=== PATIENT | female | born 1995 | race Caucasian/White ===

== ENCOUNTER 2018-08-06 15:15 | Inpatient (IN) | payer OTHER ==
[2018-08-06] MEDS ORDERED: METHYLERGONOVINE 0.2 MG INJ IM (16:00)
[2018-08-06] MEDS ORDERED: CARBOPROST 250 MCG INJ IM (16:00)
[2018-08-06] MEDS ORDERED: OXYTOCIN 30 UNITS/LR 500 ML IV (16:00)
[2018-08-06] MEDS ORDERED: MISOPROSTOL 200 MCG TAB PR (16:00)
[2018-08-06] MEDS: TERBUTALINE 1 MG/ML INJ SC (16:06)
[2018-08-06] MEDS: LACTATED RINGER'S 1,000 ML IV ×3 (16:38→19:31)
[2018-08-06 16:49] LABS: ADD MAN DIFF? NO
[2018-08-06 16:54] LABS: WHITE BLOOD COUNT 9.2 10^3/ul (4.8-10.8)
[2018-08-06 16:54] LABS: BASOPHILS % 0.1 % (0.0-2.0); EOSINOPHILS % 0.1 % (0.0-7.0); HEMATOCRIT 38.7 % (37.0-47.0); HEMOGLOBIN 12.6 g/dl (12.0-16.0); LYMPHOCYTES # 2.2 10^3/ul (0.8-2.9); LYMPHOCYTES % 23.3 % (15.0-51.0); MEAN CORPUSCULAR HEMOGLOBIN 26.2 pg (29.0-33.0); MEAN CORPUSCULAR HGB CONC 32.6 g/dl (32.0-37.0); MEAN CORPUSCULAR VOLUME 80.5 fl (82.0-101.0); MEAN PLATELET VOLUME 11.1 fl (7.4-10.4); MONOCYTE # 0.5 10^3/ul (0.3-0.9); MONOCYTES % 5.7 % (0.0-11.0); NEUTROPHIL # 6.5 10^3/ul (1.6-7.5); NEUTROPHILS % 70.4 % (39.0-77.0); PLATELET COUNT 221 10^3/UL (140-415); RED BLOOD COUNT 4.81 10^6/ul (4.20-5.40); RED CELL DISTRIBUTION WIDTH 16.7 % (11.5-14.5)
[2018-08-06 17:11] LABS: INR 0.89; PROTIME 12.2 Sec (11.9-14.9)
[2018-08-06 17:12] LABS: PARTIAL THROMBOPLASTIN TIME 25.9 Sec (23.0-35.0)
[2018-08-06 17:41] LABS: HEPATITIS B SURFACE ANTIGEN NEGATIVE (NEGATIVE)
[2018-08-06] MEDS: CITRIC ACID/NA CITRATE 30 ML CUP PO (18:53)
[2018-08-06] MEDS: ONDANSETRON 4 MG INJ IV (18:53)
[2018-08-06] MEDS ORDERED: OXYTOCIN 10 UNIT INJ (20:29)
[2018-08-06] MEDS ORDERED: PHENYLephrine (100 MCG/ML) 10ML SYG (20:29)
[2018-08-06] MEDS ORDERED: morphine SULFATE/PF (10 MG/10 ML) INJ (20:29)
[2018-08-06] MEDS ORDERED: METOCLOPRAMIDE 10 MG INJ IV (21:00)
[2018-08-06] MEDS ORDERED: ONDANSETRON 4 MG INJ IV (21:00)
[2018-08-06] MEDS ORDERED: EPHEDrine SULFATE 50 MG/5 ML SYG IV (21:00)
[2018-08-06] MEDS ORDERED: morphine 2 MG INJ IV ×2 (21:00)
[2018-08-06] MEDS ORDERED: MEPERIDINE 25 MG INJ IV (21:00)
[2018-08-06] MEDS ORDERED: DIPHENHYDRAMINE 50 MG INJ IV ×2 (21:00)
[2018-08-06] MEDS ORDERED: NALOXONE (0.4 MG/ML) INJ IV (21:00)
[2018-08-06] MEDS ORDERED: ACETAMINOPHEN 500 MG TAB PO (21:00)
[2018-08-06] MEDS ORDERED: NALBUPHINE HCL (10 MG/1 ML) INJ IV (21:00)
[2018-08-06] MEDS ORDERED: HYDROmorphONE 0.5 MG/0.5 ML SYG IV ×2 (21:00)
[2018-08-06] MEDS ORDERED: HYDROCODONE/APAP (5/325) TAB PO (21:00)
[2018-08-06] MEDS ORDERED: OXYCODONE/ACETAMINOPHEN (5/325) TAB PO (21:00)
[2018-08-06] MEDS ORDERED: ONDANSETRON 4 MG INJ (21:01)
[2018-08-06] MEDS ORDERED: DEXAMETHASONE 4 MG/ML 1 ML INJ (21:01)
[2018-08-06] MEDS ORDERED: METOCLOPRAMIDE 10 MG INJ (21:01)
[2018-08-06] MEDS ORDERED: KETOROLAC 30 MG INJ (21:01)
[2018-08-06] MEDS: OXYTOCIN 30 UNITS/LR 500 ML IV ×2 (21:50→22:42)
[2018-08-06] MEDS: CEFAZOLIN 2 GM/50 ML (PMX) 50 ML IVPB (21:54)
[2018-08-06] MEDS: OXYTOCIN 30 UNITS/LR 500 ML IVPB (22:22)
[2018-08-07] MEDS: DEXTROSE 5%-LR 1,000 ML IV ×2 (00:33→12:45)
[2018-08-07] MEDS ORDERED: METHYLERGONOVINE 0.2 MG INJ IM (01:00)
[2018-08-07] MEDS ORDERED: CARBOPROST 250 MCG INJ IM (01:00)
[2018-08-07] MEDS ORDERED: MISOPROSTOL 200 MCG TAB PR (01:00)
[2018-08-07] MEDS ORDERED: METHYLERGONOVINE 0.2 MG TAB PO (01:00)
[2018-08-07] MEDS ORDERED: OXYTOCIN 30 UNITS/LR 500 ML IV (01:00)
[2018-08-07] MEDS: OXYTOCIN 30 UNITS/LR 500 ML IV ×2 (03:56→22:00)
[2018-08-07 06:47] LABS: ADD MAN DIFF? NO
[2018-08-07 06:50] LABS: BASOPHILS % 0.1 % (0.0-2.0); HEMATOCRIT 32.6 % (37.0-47.0); HEMOGLOBIN 10.6 g/dl (12.0-16.0); LYMPHOCYTES # 1.2 10^3/ul (0.8-2.9); LYMPHOCYTES % 8.1 % (15.0-51.0); MEAN CORPUSCULAR HEMOGLOBIN 26.8 pg (29.0-33.0); MEAN CORPUSCULAR HGB CONC 32.5 g/dl (32.0-37.0); MEAN CORPUSCULAR VOLUME 82.3 fl (82.0-101.0); MONOCYTE # 0.8 10^3/ul (0.3-0.9); MONOCYTES % 5.8 % (0.0-11.0); NEUTROPHIL # 12.4 10^3/ul (1.6-7.5); NEUTROPHILS % 85.4 % (39.0-77.0); PLATELET COUNT 195 10^3/UL (140-415); RED BLOOD COUNT 3.96 10^6/ul (4.20-5.40); RED CELL DISTRIBUTION WIDTH 16.3 % (11.5-14.5)
[2018-08-07 06:50] LABS: WHITE BLOOD COUNT 14.5 10^3/ul (4.8-10.8)
[2018-08-07] MEDS: SENNA/DOCUSATE NA (8.6MG/50MG) TAB PO ×2 (10:02→21:36)
[2018-08-07] MEDS ORDERED: HYDROCODONE/APAP (5/325) TAB NGT (11:00)
[2018-08-07] MEDS: KETOROLAC 30 MG INJ IV ×2 (11:07→17:04)
[2018-08-07 15:01] LABS: RAPID PLASMA REAGIN NONREACTIVE (NR)
[2018-08-07] MEDS: HYDROCODONE/APAP (5/325) TAB GTB (21:36)
[2018-08-07] MEDS: IBUPROFEN 800 MG TAB PO (22:00)
[2018-08-08] MEDS: OXYTOCIN 30 UNITS/LR 500 ML IV ×7 (02:00→22:00)
[2018-08-08] MEDS: IBUPROFEN 800 MG TAB PO ×3 (06:01→22:32)
[2018-08-08] MEDS: HYDROCODONE/APAP (5/325) TAB GTB ×3 (06:01→22:32)
[2018-08-08] MEDS: DIPHTH/TET/ACEL PERTUSS (ADULT) 0.5 ML VIAL IM* (06:02)
[2018-08-08] MEDS: DEXTROSE 5%-LR 1,000 ML IV ×4 (06:03→16:33)
[2018-08-08] MEDS: SENNA/DOCUSATE NA (8.6MG/50MG) TAB PO ×2 (09:00→20:44)
[2018-08-09] MEDS: DEXTROSE 5%-LR 1,000 ML IV ×2 (00:33→08:33)
[2018-08-09] MEDS: OXYTOCIN 30 UNITS/LR 500 ML IV ×3 (02:00→10:00)
[2018-08-09] MEDS: IBUPROFEN 800 MG TAB PO (05:58)
[2018-08-09] MEDS: HYDROCODONE/APAP (5/325) TAB GTB (06:00)
[2018-08-09] MEDS: SENNA/DOCUSATE NA (8.6MG/50MG) TAB PO (09:00)
[2018-08-09] MEDS: DIPHTH/TET/ACEL PERTUSS (ADULT) 0.5 ML VIAL IM* (09:00)
[2018-08-09] MEDS: MEASLES,MUMPS,RUBELLA VACCINE INJ SC* (09:00)
[2018-08-09] MEDS: LANOLIN HPA 1 PKT TOP (09:00)
== END 2018-08-09 13:45 | disposition home or self-care (01) | DRG 788 ==
LOC: OBT 15:15 → PP1 08-07 00:18 → L-D 15:17 → OBT 15:51 → L-D 15:51
PROVIDERS: Obstetrics & Gynecology
PROC: 10D00Z1 Extraction of Products of Conception, Low, Open Approach (ICD-10-PCS; principal; 2018-08-06 20:00)
PROC: 4A1HXCZ Monitoring of Products of Conception, Cardiac Rate, External Approach (ICD-10-PCS; 2018-08-06 20:00)
DX: O34.211 Maternal care for low transverse scar from previous cesarean delivery (principal); Z3A.37 37 weeks gestation of pregnancy; Z37.0 Single live birth
CPT/HCPCS: 85025; 85610; 85730; 86592; 86850; 86900; 86901; 87340; 99464